=== PATIENT | male | born 1985 | race African-American/Black ===

== ENCOUNTER 2020-08-25 14:23 | Emergency (ER) | payer SELFPAY ==
[2020-08-25 14:33] VITALS: BP 166/117; PULSE 117; RESP 20; TEMP 36.8; O2SAT 95
--- NOTE | 2020-08-25 15:18 | ED.GENADULT ---
HPI - General Adult General Chief complaint: Unspecified Stated complaint: sore throat/body aches Time Seen by Provider: 08/25/20 14:29 Source: patient and family Mode of arrival: ambulatory Limitations: no limitations History of Present Illness HPI narrative: Patient 35-year-old male who presents with 2 days duration of fever chills body aches sore throat took ibuprofen with some improvement denies vomiting diarrhea or other URI symptoms or sick contacts or similar occurrence in the past pain of the throat is moderate worse with swallowing Related Data Allergies Allergy/AdvReac Type Severity Reaction Status Date / Time No Known Allergies Allergy Verified 08/25/20 14:36 Review of Systems Review of Systems: All systems reviewed & are unremarkable except as noted in HPI and below PMFSH Social History Social History (Updated 08/25/20 @ 15:19 by Fortino Blandon PA-C) Smoking status: Current every day smoker Gender identity (if verbalized by the patient): Male Exam Narrative: Exam Narrative: GENERAL: Well-appearing, well-nourished, and in no acute distress. HEAD: Normocephalic, atraumatic. EYES: PERRLA and EOMI. ENT: Nares clear, no rhinorrhea or epistaxis. Mucous membranes moist. Oropharynx with erythema minimal hypertrophy uvula midline no trismus or drooling NECK: Supple. Anterior adenopathy CHEST: Clear to auscultation. No respiratory distress. No wheezes rales or rhonchi HEART: Regular rate and rhythm. No murmur heard. EXTREMITIES: Normal range of motion. No edema. SKIN: Warm, dry, no rash. NEURO: No focal deficits. Alert and oriented x3. PSYCH: Normal mood and affect. Course Course Emergency Course: Patient with strep pharyngitis also with swab for Covid will self quarantine and utilize the on-call primary care to facilitate getting his results given that he is from out of town here on a work project patient afebrile nontoxic-appearing at this time felt appropriate for outpatient reevaluation given reasons to return Vital Signs Vital signs: Vital Signs Temperature 98.3 F 08/25/20 14:33 Pulse Rate 117 H 08/25/20 14:33 Respiratory Rate 20 08/25/20 14:33 Blood Pressure 166/117 H 08/25/20 14:33 Pulse Oximetry 95 08/25/20 14:33 Temperature 98.3 F 08/25/20 14:33 Pulse Rate 117 H 08/25/20 14:33 Respiratory Rate 20 08/25/20 14:33 Blood Pressure 166/117 H 08/25/20 14:33 Pulse Oximetry 95 08/25/20 14:33 Medical Decision Making MDM Narrative Medical decision making narrative: Patient will be treated with antibiotics for strep pharyngitis with Covid testing pending. there are no focal signs of space occupying lesions that are compromising to the ariway. The floor of the mouth is soft with no signs of Ludwigs Angina. Patient is without trismus or drooling and able to swallow secreations. Vital Signs Vital Signs: Vital Signs Temperature 98.3 F 08/25/20 14:33 Pulse Rate 117 H 08/25/20 14:33 Respiratory Rate 20 08/25/20 14:33 Blood Pressure 166/117 H 08/25/20 14:33 Pulse Oximetry 95 08/25/20 14:33 Temperature 98.3 F 08/25/20 14:33 Pulse Rate 117 H 08/25/20 14:33 Respiratory Rate 20 08/25/20 14:33 Blood Pressure 166/117 H 08/25/20 14:33 Pulse Oximetry 95 08/25/20 14:33 Lab Data Labs: Lab Results 08/25/20 Range/Units 14:48 SARS-CoV-2 RNA (RT-PCR) Pending Strep Screen Positive Group A Strep *(Reference Range: Negative)* Discharge Plan Discharge Clinical Impression: Acute streptococcal pharyngitis Patient Disposition: Home, Self-Care Condition: Stable Instructions: Antibiotic Form, Strep Throat (DC) Additional Instructions: Follow up with your primary care provider within 1-2 days to set up for reevaluation and for your COVID-19 results. Go to ER for shortness of breath, difficulty breathing, chest pain, fever/chills, weakness, nauseau/vomitting, unable t
[2020-08-25 16:23] VITALS: BP 160/112; PULSE 61; RESP 18; O2SAT 100
[2020-08-25 23:03] LABS: SARS-CoV-2 RNA PCR Negative
== END 2020-08-25 16:25 | disposition home or self-care (01) ==
LOC: ANHED 15:43
PROVIDERS: Emergency Medicine Emergency Medical Services; Emergency Provider Emergency Medicine
DX: J02.0 Streptococcal pharyngitis (principal); Z20.828 Contact with and (suspected) exposure to other viral communicable diseases; F17.200 Nicotine dependence, unspecified, uncomplicated
CPT/HCPCS: 87635; 87880; 99283; C9803; U0003